=== PATIENT | female | born 1985 | race African-American/Black ===

== ENCOUNTER 2022-08-30 13:02 | Emergency (ER) | payer MEDICAID ==
[~2022-08-30] VITALS: Ht 160 cm; Wt 68.0 kg
[2022-08-30] MEDS ORDERED: KETOROLAC 60MG/2ML VIAL IM ONE (14:45)
[2022-08-30] MEDS ORDERED: METH-773 MT (18:08)
[2022-08-30] MEDS ORDERED: IBUP-2029 MT (18:08)
[2022-08-30 19:02] VITALS: BP 125/87
== END 2022-08-30 19:05 | disposition home or self-care (01) ==
LOC: ER 13:02
DX: M54.2 Cervicalgia (principal); M54.50 Low back pain, unspecified; M25.511 Pain in right shoulder; M79.642 Pain in left hand; M25.561 Pain in right knee; V49.49XA Driver injured in collision with other motor vehicles in traffic accident, initial encounter; Y93.89 Activity, other specified; Y92.89 Other specified places as the place of occurrence of the external cause; Y99.8 Other external cause status
CPT/HCPCS: 72040; 72100; 73030; 73130; 73560; 73590; 81025; 96372; 99284; J1885; Z7610

== ENCOUNTER 2023-05-26 18:02 | Emergency (ER) | payer SELFPAY ==
[~2023-05-26] VITALS: Ht 167.6 cm; Wt 77.0 kg
[~2023-05-26 18:02] MED LIST: IBUP-2029 MT; METH-773 MT
[2023-05-26 18:14] VITALS: O2SAT 100
[2023-05-26] MEDS ORDERED: DIPH-1207 MT (18:46)
[2023-05-26] MEDS: DEXAMETHASONE 4MG/ML 1ML VIAL IV ONE (18:51)
[2023-05-26 19:06] VITALS: BP 121/87; PULSE 71; RESP 18; TEMP 98.5
== END 2023-05-26 19:45 | disposition home or self-care (01) ==
LOC: ER 18:02
DX: T78.40XA Allergy, unspecified, initial encounter (principal); L50.9 Urticaria, unspecified; X58.XXXA Exposure to other specified factors, initial encounter
CPT/HCPCS: 99283; 96374; J1100